=== PATIENT | male | born 1960 | race Hispanic/Latino ===

== ENCOUNTER → 2024-04-21 | Outpatient (CLI) | payer OTHER ==
--- NOTE | 2024-04-25 13:34 | HMCSR ---
APPROVED REPORT EXAM: Two-dimensional and M-mode echocardiogram with Doppler and color Doppler. INDICATION ICD: Essential (primary) Hypertension I10.0 Surgery/Intervention CABG: Date: 2023 RISK FACTORS Hypertension Hyperlipidemia 2D Dimensions RVDd4.1 cmLVEF(%)54.0 (>50%)LVED Vol(simp.)139.0 mL IVSd1.1 (0.7-1.1cm)FS(%)28 %LVES Vol(simp.)64.0 mL LVDd5.5 (3.8-5.6cm)LA (2D)4.3 (1.6-4.0cm)LVEF(%, simp.)54 % PWd1.0 (0.7-1.1cm)Ao Root(2D)3.4 (2.0-3.7cm)LA ESV INDEX (BP)42.57 mL/m2 LVDs3.9 (2.5-4.0cm)LVOT diam2.4 (1.8-2.4cm) IVC diam2.1 cm M-Mode Dimensions EPSS0.9 cm LA (MM)4.6 (1.6-4.0cm) Ao Root(MM)3.3 (2.0-3.7cm) Aortic Valve AoV Vmax1.4 m/Fab Peak GR8.1 mmHgLVOT Vmax1.0 m/s AoV VTI0.3 mAo Mean GR5.1 mmHgLVOT VTI0.22 m HUAN (VMAX)3.1 cm2AVA (VTI) 3.1 cm2 Mitral Valve MV E Vmax85.7 cm/sDECEL Ipja051 msMR [id number] cm2 MV A Vmax39.4 cm/sMR Mean PG74 mmHg E/A ratio2.2 MR Max PG103 mmHg TDI E/E' Uvyuhr06.6E/E' Lateral5.7 Pulmonary Valve PV Vmax1.0 m/sPV VTI0.21 mPV Mean GR2 mmHg PV Peak GR3.8 mmHgPI End Jerri. Rizwan 1.0 cm/s Tricuspid Valve TR Vmax2.5 m/sRAP (EST) 8 smFoXQMG68.4 mmHg TR Peak GR24.4 mmHg Left Ventricle Left ventricular cavity size is normal. There is normal LV segmental wall motion. There is borderline left ventricular hypertrophy. LVEF is 55%. No left ventricle thrombus noted on this study. Left vent ricular filling pattern is normal for age. Right Ventricle The right ventricle is normal size. The right ventricular systolic function is normal. Atria The left atrium is moderately dilated. The right atrium is dilated. Aortic Valve Aortic valve is trileaflet. The aortic valve is mildly thickened but opens well. No aortic regurgitat ion is present. There is no aortic valvular stenosis. Mitral Valve Mitral valve leaflets are sclerotic but open well. Mitral regurgitation is mild. There is no mitral v alve stenosis. Tricuspid Valve The tricuspid valve leaflets appear normal. There is trace to mild tricuspid regurgitation. Right nick tricular systolic pressure is estimated at 30-40 mmHg. Pulmonic Valve The pulmonic valve leaflets are thin and pliable; valve motion is normal. There is trace pulmonic tammy vular regurgitation. Great Vessels The aortic root is normal in size. IVC is dilated and collapses >50% with inspiration. Pericardium No pericardial effusion. Conclusion Left ventricular cavity size is normal. LVEF is 55%. The right ventricle is normal size. The left atrium is moderately dilated. Aortic valve is trileaflet. The aortic valve is mildly thickened but opens well. No aortic regurgitation is present. Mitral valve leaflets are sclerotic but open well. Mitral regurgitation is mild. There is trace to mild tricuspid regurgitation. Right ventricular systolic pressure is estimated at 30-40 mmHg. There is trace pulmonic valvular regurgitation. The aortic root is normal in size. IVC is dilated and collapses >50% with inspiration. No pericardial effusion.
== END | disposition home or self-care (01) ==
LOC: SHCH 13:08
PROVIDERS: ATTEND Internal Medicine Cardiovascular Disease
DX: I10 Essential (primary) hypertension (principal)
CPT/HCPCS: 93306